=== PATIENT | female | born 1995 | race Caucasian/White ===

== ENCOUNTER 2022-12-25 09:36 | Day surgery (SDC) | payer MEDICAID ==
[~2022-12-25] VITALS: Ht 157.5 cm; Wt 52.2 kg
[2022-12-25 10:26] LABS: HCG,QUAL RESULT NEGATIVE (NEGATIVE)
[2022-12-25] MEDS ORDERED: fentaNYL CITRATE/PF 100 MCG/2 ML AMP ONE (11:48)
[2022-12-25] MEDS ORDERED: SUCCINYLCHOLINE CHLORIDE 20 MG/ML(QUELICIN) ONE (11:48)
[2022-12-25] MEDS ORDERED: NEOSTIGMINE METHYLSULFATE 1 MG/ML, 10 ML VIAL ONE (11:48)
[2022-12-25] MEDS ORDERED: ONDANSETRON HCL 4 MG/2 ML VIAL ONE ×2 (11:48→16:26)
[2022-12-25] MEDS ORDERED: NS IRRIG SOLN 1000 ML IR ONE (11:48)
[2022-12-25] MEDS ORDERED: SEVOFLURANE 15 MIN GAS INH ONE (11:48)
[2022-12-25] MEDS ORDERED: BUPIVACAINE /PF 0.5% 30 ML VIAL ONE (11:48)
[2022-12-25] MEDS ORDERED: MIDAZOLAM HCL/PF 2 MG/2 ML SYRINGE ONE (11:48)
[2022-12-25] MEDS ORDERED: GLYCOPYRROLATE 0.2 MG/ML VIAL ONE (11:48)
[2022-12-25] MEDS ORDERED: KETOROLAC TROMETHAMINE 30 MG VIAL IVP PRN (13:00)
[2022-12-25] MEDS ORDERED: ONDANSETRON HCL 4 MG/2 ML VIAL IVP PRN (13:00)
[2022-12-25] MEDS ORDERED: METOCLOPRAMIDE HCL 10 MG/2 ML VIAL IVP PRN (13:00)
[2022-12-25] MEDS ORDERED: HYDROmorphone 1 MG/ML INJ. CARTRIDGE IVP PRN (13:00)
[2022-12-25] MEDS: HYDROmorphone 2 MG/ML VIAL ONE ×2 (13:15→15:31)
[2022-12-25] MEDS ORDERED: ACETAMINOPHEN I.V. 1000 MG 100 ML IV ONE ×2 (13:29→13:30)
[2022-12-25 13:58] VITALS: O2SAT 100
[2022-12-25 17:03] VITALS: BP_SYST 111; PULSE 80; RESP 16; TEMP 97.6
== END 2022-12-25 19:28 | disposition home or self-care (01) ==
LOC: SDS 09:36 → SMU 09:37 → SDS 16:00
PROVIDERS: ATTEND Obstetrics & Gynecology
DX: N80.9 Endometriosis, unspecified (principal); K66.0 Peritoneal adhesions (postprocedural) (postinfection); F31.9 Bipolar disorder, unspecified; G89.29 Other chronic pain; Z91.040 Latex allergy status; Z79.899 Other long term (current) drug therapy
CPT/HCPCS: 87081; 58660; 84703; J3490 ×2; J3465; J2405; J0330; J3010; J1170; C1727; J0131; J2710